=== PATIENT | male | born 1980 | race African-American/Black ===

== ENCOUNTER 2016-09-29 20:34 | Emergency (ER) | payer SELFPAY ==
[~2016-09-29] VITALS: Ht 170.2 cm; Wt 50.7 kg
[2016-09-29 20:46] VITALS: BP 136/84
[2016-09-29] MEDS ORDERED: AMBIEN5 M1 (20:57)
[2016-09-29] MEDS ORDERED: ABILIFY2 MG (20:58)
[2016-09-29] MEDS ORDERED: ZOLOFT25 M1 (20:58)
[2016-09-29] MEDS ORDERED: MINIPRESS1 M1 (20:58)
== END 2016-09-30 01:45 | disposition home or self-care (01) ==
LOC: ED 20:34
DX: F32.9 Major depressive disorder, single episode, unspecified (principal); R45.851 Suicidal ideations; F41.9 Anxiety disorder, unspecified; F43.10 Post-traumatic stress disorder, unspecified